=== PATIENT | male | born 1955 | race Caucasian/White ===

== ENCOUNTER → 2016-10-13 | Day surgery (SDC) | payer BC ==
[~2016-10-13] MED LIST: HYDROCODON-ACE1 EAC5 PO; LEVOXYL125 MC1 PO; LYRICA PO; MORPHINE SULFAT15 MG PO; NORCO 10-325 TA1 TAB PO; SUMATRIPTAN SU100 MG PO; TENORMIN50 MG PO; VITAMIN D2400 UNIT PO; ZOLOFT100 MG PO
--- NOTE | ~2016-10-13 | OR ---
Unit #: [id number] #: [id number] Patient: CECI LIU [id number] [address] [place], [place] [address] [id number] MR#: [id number] NAME: CECI LIU ROOM: Date of Procedure: 10/13/2016 Admission Date: 10/13/2016 Surgeon: Juan Santiago M.D. : 1955 Attending Physician: Juan Santiago M.D. Referring Physician: Juan Santiago M.D. Primary Care Physician: Edson Jorgensen M.D. OPERATIVE REPORT PREOPERATIVE DIAGNOSES 1. Back pain, radiculopathy, degenerative disk disease, lumbar spinal stenosis. 2. Degenerative right hip disease. PROCEDURES PERFORMED 1. Lumbar epidural steroid injection with fluoroscopic guidance for needle localization. 2. Right hip arthrocentesis and corticosteroid injection with fluoroscopic guidance. INDICATIONS FOR PROCEDURE The patient is a 61-year-old male with previously mentioned diagnosis. He was last treated about a year ago with epidural steroids, did quite well until recently. The pain has actually not flared, all the way back to its baseline. He was also found to have some separate issues with his right hip. His orthopedic surgeon requested that we do an injection under fluoroscopy for that problem. DESCRIPTION OF PROCEDURE The patient was placed in a seated position. Standard monitors were applied. Sterile prep and drape of the lumbar area was performed. The skin at the L5 level was localized with 1% lidocaine. An 18-gauge Image Insighttead needle was then advanced via loss of resistance technique and fluoroscopic guidance in toward the epidural space. The patient did not complain of pain or paresthesia during needle advancement. After confirming proper positioning with fluoroscopy and radiographic contrast, a dose of 80 mg Depo-Medrol and 6 mL of preservative-free normal saline were deposited. The patient tolerated this part of the procedure well. Procedure #2: Right hip injection with fluoroscopic guidance for needle localization and arthrocentesis. The patient's lateral right hip was sterilely prepped. The skin was localized with Marcaine. A long 22-gauge Quincke point spinal needle was then advanced with fluoroscopic guidance to advance the needle to within the superior edge of the patient's right hip joint. Fluoroscopy and radiographic contrast were used to confirm that the needle tip was intra-articular. Once this was confirmed, a dose of 40 mg of Kenalog and 3 mL of 0.25% bupivacaine were deposited. The needle was flushed and removed. The patient tolerated the procedure otherwise well and was discharged to recovery room in stable condition. analgesias in the right hip following this injection over the Unit #: [id number] #: [id number] Patient: CECI LIU next few hours. Dictated by... Yamilex Negro/aayush TD: 10/14/2016 07:17 JOB #: [id number] OPERATIVE REPORT Page 1 of 1 X Juan Santiago MD X PROCEDURE OPERATIVE NOTE
== END | disposition home or self-care (01) ==
LOC: CCSC 09:38
DX: M51.16 Intervertebral disc disorders with radiculopathy, lumbar region (principal); M16.11 Unilateral primary osteoarthritis, right hip; M48.06 Spinal stenosis, lumbar region; K21.9 Gastro-esophageal reflux disease without esophagitis; F32.9 Major depressive disorder, single episode, unspecified; F41.9 Anxiety disorder, unspecified; Z79.891 Long term (current) use of opiate analgesic; Z79.899 Other long term (current) drug therapy
CPT/HCPCS: J1040; J2250; J3301